=== PATIENT | male | born 1995 | race Caucasian/White ===

== ENCOUNTER 2017-02-22 21:36 | Emergency (ER) | payer OTHER ==
[~2017-02-22] VITALS: Ht 182.9 cm; Wt 67.9 kg
[2017-02-22 21:41] VITALS: TEMP 36.7; Ht 182.9 cm; Wt 67.9 kg
[2017-02-22] MEDS ORDERED: MoRPHine SULFATE 10 MG/ML CARP/VIAL IM STA (22:09)
[2017-02-22] MEDS ORDERED: ASPI-390 PO (22:10)
[2017-02-22] MEDS ORDERED: IBUP-103 PO (22:10)
[2017-02-22] MEDS ORDERED: MoRPHine SULFATE 4 MG/ML 1 ML CARP\\VIAL ONE (22:22)
[2017-02-22] MEDS ORDERED: LIDOCAINE 1% BUFFERED INJ 20 ML VIAL INFIL ONE (22:45)
[2017-02-22] MEDS ORDERED: BUPIVACAINE 0.25% 30 ML VIAL INFIL ONE (22:45)
[2017-02-22] MEDS ORDERED: SILVER SULFADIAZINE 1% CR 50 GM JAR EXT ONE (22:45)
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
[2017-02-22] MEDS ORDERED: BACITRACIN OINT 15 GM TUBE EXT ONE (23:00)
[2017-02-22] MEDS ORDERED: OXYC-90 PO (23:52)
[2017-02-23] MEDS ORDERED: OXYCODONE IR HOME PACK PO ONE (00:45)
[2017-02-23 00:47] VITALS: BP 127/88; PULSE 92; O2SAT 97
== END 2017-02-23 00:49 | disposition home or self-care (01) ==
LOC: C.EDB 21:37 → C.EDD 02-23 00:49
DX: T23.202A Burn of second degree of left hand, unspecified site, initial encounter (principal); T23.232A Burn of second degree of multiple left fingers (nail), not including thumb, initial encounter; T23.291A Burn of second degree of multiple sites of right wrist and hand, initial encounter; X11.8XXA Contact with other hot tap-water, initial encounter; Z88.1 Allergy status to other antibiotic agents